=== PATIENT | female | born 1955 | race Caucasian/White ===

== ENCOUNTER → 2018-09-07 | Outpatient (CLI) | payer OTHER ==
--- NOTE | 2018-09-07 17:23 | RAD ---
KNEE LEFT 2V History: Arthritis.. No prior study for comparison. Mild narrowing of the medial joint compartment. There are marginal osteophytes at the medial and lateral joint compartment. Mild irregularity of the subchondral bone plate at the lateral tibial plateau could be degenerative or related to old fracture. Narrowing of the patellofemoral joint. Well-corticated density within the suprapatellar region, compatible with either an ununited osteophyte or loose body. Degenerative hypertrophic fabella. Small density at the posterior knee joint on the lateral view, possible small loose body. No evidence of acute fracture or aggressive bone destruction. IMPRESSION: 1. Primary osteoarthritis. 2. Mild irregularity of the lateral tibial plateau articular surface could be degenerative or related to old trauma. 3. Possible posterior loose body. 4. Ununited osteophyte versus loose body in the suprapatellar recess. Electronically signed by: Herberth Pollack MD (09/07/2018 5:20 PM) [id number]
== END | disposition home or self-care (01) ==
LOC: RAD 12:17
PROVIDERS: ATTEND Internal Medicine
DX: Z02.71 Encounter for disability determination (principal); M17.12 Unilateral primary osteoarthritis, left knee; M25.762 Osteophyte, left knee
CPT/HCPCS: 73560